=== PATIENT | male | born 1950 | race Caucasian/White ===

== ENCOUNTER 2018-04-09 15:33 | Emergency (ER) | payer MEDICARE, OTHER ==
[~2018-04-09] VITALS: Ht 177.8 cm; Wt 56.9 kg
[2018-04-09 16:46] LABS: BASOPHILS % (AUTO) 0.5 % (0-1); EOSINOPHILS # (AUTO) 0.2 X10'3 (0-0.9); EOSINOPHILS % (AUTO) 2.3 % (0-6); HEMATOCRIT 41.3 % (42.0-52.0); HEMOGLOBIN 13.9 g/dl (14.0-17.9); LYMPHOCYTES % (AUTO) 28.9 % (21-51); MEAN CORPUSCULAR HEMOGLOBIN 31.6 PG (27.0-31.0); MEAN CORPUSCULAR HGB CONC 33.7 % (33.0-36.5); MEAN PLATELET VOLUME 7.1 FL (7.4-10.4); MONOCYTES # (AUTO) 0.4 X10'3 (0-0.9); MONOCYTES % (AUTO) 5.5 % (2-12); NEUTROPHILS # (AUTO) 4.4 X10'3 (1.8-7.7); NEUTROPHILS % (AUTO) 62.8 % (42-75); PLATELET COUNT 271 X10'3 (140-440); RED BLOOD COUNT 4.39 X10'6 (4.70-6.10); RED CELL DISTRIBUTION WIDTH 13.6 % (11.5-14.5)
[2018-04-09 16:47] LABS: CLARITY,URINE CLEAR (Clear); COLOR,URINE YELLOW (Yellow); GLUCOSE, URINE NEGATIVE (Neg); KETONES,URINE NEGATIVE (Neg); LEUKOCYTE ESTERASE ,URINE NEGATIVE (Neg); NITRITES, URINE NEGATIVE (Neg); OCCULT BLOOD,URINE NEGATIVE (Neg); PH,URINE 5.5 (4.8-8.0); PROTEIN,URINE NEGATIVE (Neg); UROBILINOGEN,URINE 0.2 E.U/dL (0.2-1.0)
[2018-04-09 16:56] LABS: UA COLLECTION TYPE CLN CATCH MIDSTREAM
[2018-04-09 16:57] LABS: ALANINE AMINOTRANSFERASE 20 U/L (12-78); ALBUMIN 3.7 G/DL (3.4-5.0); ALBUMIN/GLOBULIN RATIO 1.2 (1.1-1.5); ALKALINE PHOSPHATASE 100 IU/L (46-116); ANION GAP 10 (8-16); ASPARTATE AMINO TRANSFERASE 10 U/L (10-37); BILIRUBIN,TOTAL 0.3 MG/DL (0.1-1.0); BLOOD UREA NITROGEN 22 MG/DL (7-18); BUN/CREATININE RATIO 22.7 (5.4-32.0); CALCIUM 8.9 MG/DL (8.5-10.1); CHLORIDE 105 MMOL/L (99-107); CREATININE 0.97 MG/DL (0.60-1.10); GLUCOSE 109 MG/DL (70-104); POTASSIUM 3.7 MMOL/L (3.5-5.1); SODIUM 144 MMOL/L (135-145); TOTAL CARBON DIOXIDE 29.5 MMOL/L (24-32); TOTAL PROTEIN 6.7 G/DL (6.4-8.2); eGFR 77 ML/MIN
[2018-04-09] MEDS ORDERED: iohexol 300mg/ml 100ml inj. ONE (19:26)
[2018-04-09 19:41] LABS: BETA HCG,QUANTITATIVE < 1.0 mIU/ml; LACTATE DEHYDROGENASE 231 U/L (85-227)
[2018-04-09] MEDS ORDERED: ACET-3068 PO (21:48)
[2018-04-09 21:57] VITALS: BP 156/80
[2018-04-09] MEDS ORDERED: HYDR-3965 PO (22:06)
== END 2018-04-09 22:13 | disposition home or self-care (01) ==
LOC: ER 15:34
DX: N43.3 Hydrocele, unspecified (principal); F17.200 Nicotine dependence, unspecified, uncomplicated; Z88.6 Allergy status to analgesic agent; Z79.899 Other long term (current) drug therapy; Z87.442 Personal history of urinary calculi
CPT/HCPCS: 36415; 74177; 76870; 80053; 81003; 82103; 83615; 84702; 85025; 99285; Q9967

== ENCOUNTER 2020-03-31 23:19 | Emergency (ER) | payer OTHER, MEDICARE ==
[~2020-03-31] VITALS: Ht 177.8 cm; Wt 63.6 kg
[2020-03-31 23:24] VITALS: BP 168/85
[2020-03-31] MEDS ORDERED: KEN0.1O TP (23:37)
[2020-03-31] MEDS ORDERED: CEPH500C5 PO (23:37)
[2020-03-31] MEDS ORDERED: cephalexin 250mg capsule PO ONE (23:40)
== END 2020-04-01 00:08 | disposition home or self-care (01) ==
LOC: ER 23:20
DX: S50.862A Insect bite (nonvenomous) of left forearm, initial encounter (principal); L30.8 Other specified dermatitis; L03.114 Cellulitis of left upper limb; R50.9 Fever, unspecified; F17.200 Nicotine dependence, unspecified, uncomplicated; Z87.442 Personal history of urinary calculi; Z88.5 Allergy status to narcotic agent; Z79.2 Long term (current) use of antibiotics; Z79.899 Other long term (current) drug therapy; W57.XXXA Bitten or stung by nonvenomous insect and other nonvenomous arthropods, initial encounter; Y93.89 Activity, other specified; Y92.89 Other specified places as the place of occurrence of the external cause; Y99.8 Other external cause status
CPT/HCPCS: 99283

== ENCOUNTER 2021-02-11 22:49 | Emergency (ER) | payer MEDICARE ==
[~2021-02-11] VITALS: Ht 154.9 cm; Wt 61.4 kg
[~2021-02-11 22:49] MED LIST: CEPH-585 PO
[2021-02-11 23:30] VITALS: BP 145/79
== END 2021-02-12 00:10 | disposition home or self-care (01) ==
LOC: ER 22:50
DX: U07.1 COVID-19 (principal); Z87.442 Personal history of urinary calculi; Z88.5 Allergy status to narcotic agent; Z79.2 Long term (current) use of antibiotics
CPT/HCPCS: 71045; 87635; 99284; C9803

== ENCOUNTER 2023-07-26 20:11 | Emergency (ER) | payer MEDICARE ==
[~2023-07-26] VITALS: Ht 177.8 cm; Wt 68.2 kg
[2023-07-26 20:18] VITALS: BP 128/89; PULSE 70; RESP 18; TEMP 98.5; O2SAT 96
[2023-07-26] MEDS ORDERED: proparacaine 0.5% ophthalmic drops 15ml EACHEYE ONE (20:25)
[2023-07-26] MEDS ORDERED: POLOS LEFTEYE (21:43)
== END 2023-07-26 21:45 | disposition home or self-care (01) ==
LOC: ER 20:13
DX: S05.02XA Injury of conjunctiva and corneal abrasion without foreign body, left eye, initial encounter (principal); Z87.442 Personal history of urinary calculi; Z88.5 Allergy status to narcotic agent; X58.XXXA Exposure to other specified factors, initial encounter; Y93.9 Activity, unspecified; Y92.89 Other specified places as the place of occurrence of the external cause; Y99.8 Other external cause status
CPT/HCPCS: 99283